=== PATIENT | male | born 1995 | race African-American/Black ===

== ENCOUNTER 2016-08-31 17:35 | Emergency (ER) | payer SELFPAY ==
--- NOTE | 2016-08-31 18:09 | ED CLINICAL REPORT ---
Clinical Report - Physicians/Mid Levels [facility] [address] [place] [address] 08/31/2016 17:37 Patient: BALWINDER DELACRUZ III Time Seen: 17:44; initial patient contact. Arrived- By private vehicle. Historian- patient. HISTORY OF PRESENT ILLNESS Chief Complaint: EYE REDNESS and IRRITATION. This started just prior to arrival and involves the right eye. pt was putting in his contacts and didn't realize he had put a cleanser in his contact lense case, not daily solution...and the second it hit his eye, it became irritated and red...no other trauma,no foreign body, etcc he removed the contact lense and irrigated his eye with water and solution, and then came to the ER. The patient wears soft contact lenses. The patient's problem began soon after inserting the contacts. Mild right eye discomfort. Moderate right eye redness (today). Eye irritation. No eye discharge, eye matting, eye itching or eyelid swelling. Mild right-sided photophobia. REVIEW OF SYSTEMS All systems otherwise negative, except as recorded above. PAST HISTORY See nurses notes. Tetanus immunization status is up-to-date. Problems: Dislocation of Finger. Fractured Phalanx (Finger). Left wrist fx. Sprain. Tetanus Status. Immunizations. Medications: None. Allergies: None. SOCIAL HISTORY No alcohol use or drug use. ADDITIONAL NOTES The nursing notes have been reviewed with agreement regarding the chief complaint, HPI, ROS, PMH and patient medications and allergies. PHYSICAL EXAM Vital Signs: 08/31/2016 17:46 BP: 134/77. HR: 79. RR: 16. O2 saturation: 100%. Temp: 97.5 F. Pain level now: 710. Have been reviewed. Appearance: Alert. Oriented X3. No acute distress. Rt Eye: Mild conjunctival edema. Moderately injected conjunctiva. No injury to the periorbital area, conjunctiva or sclera, eyelid edema or subconjunctival hemorrhage. No conjunctival foreign body. No exudate present. Eyes: Visual acuity noted- see nurse's notes. Eyelids appear normal to inspection. Periorbital areas appear normal to inspection. Lt Eye: Left eye exam normal. No injury to the periorbital area, conjunctiva or sclera or eyelid edema. No conjunctival edema or foreign body or subconjunctival hemorrhage. Conjunctiva not injected. No exudate present. CLINICAL IMPRESSION Acute chemical conjunctivitis of the right eye (due to contact lens matcher). INSTRUCTIONS No dietary restrictions. Do not smoke. No alcohol. (do not wear your contact lenses until redness is gone. follow up with your regional clinical director if not improved in 3 days or if pain develops). Prescription Medications: Polytrim ophthalmic solution: instill 1 drop into the affected eye every 3 hours while awake for 5 days, until symptoms resolve. Dispense ten (10) mL. No refill. Substitution is permissible. Follow-up: Follow up with an outreach director. Reason for referral: right eye redness if not improved. Understanding of the discharge instructions verbalized by patient. (Electronically signed by Brianne Han PA-C 08/31/2016 20:19)
--- NOTE | 2016-08-31 18:09 | ED NURSING NOTES ---
Clinical Report - Nurses [facility] [address] [place] [address] 08/31/2016 17:37 Patient: BALWINDER DELACRUZ III TRIAGE Triage time 17:46 Aug 31 2016. Acuity: LEVEL 4. Chief Complaint: BURNING TO RIGHT EYE. (used peroxide contact solution in regular contact case). Alert. No acute distress. --17:49 Nila Walters R.N. 17:46 08/31/16. BP: 134/77. HR: 79. RR: 16. O2 saturation: 100%. Temp: 97.5 F. Pain level now: 11/17. --17:49 Nila Walters R.N. Weight: 117.9 kg stated. Height/Length: 72 inches Per Patient. BMI: 35.3. Growth Chart Percentile: Weight: 99.5%. Height/Length: 80.1%. --17:48 Nila Walters R.N. Medications None. --17:47 Nila Walters R.N. Allergies None. --17:47 Nila Walters R.N. History This started today. He did not sustain an injury. He has had eye discomfort. Treatment TRIPOLER: Irrigation. PAST MEDICAL HX: Immunizations: up-to-date. SOCIAL HX: Never smoker. No alcohol use or drug use. No infectious disease exposure. SELF HARM ASSESSMENT: A self harm assessment was performed. The patient answered "no" to the question "Do you have thoughts of harming or killing yourself?". FALL RISK ASSESSMENT: Fall risk assessment completed. No fall risk identified. NUTRITIONAL RISK ASSESSMENT: The nutritional risk assessment revealed no deficiencies. FUNCTIONAL ASSESSMENT: Functional assessment: no impairments noted. LEARNING NEEDS ASSESSMENT: The learning needs assessment revealed no barriers. ABUSE ASSESSMENT: Abuse assessment: The patient was asked "Do you feel safe in your home?". SKIN INTEGRITY ASSESSMENT: Skin integrity risk assessment completed. No skin integrity risk identified. --17:49 Nila Walters R.N. PROBLEMS: Dislocation of Finger. Fractured Phalanx (Finger). Sprain. Tetanus Status. Immunizations. --17:48 Nila Walters R.N. Interventions ID band on patient. --17:49 Nila Walters R.N. PHYSICAL ASSESSMENT GENERAL / NEURO / PSYCH: Alert. Appears in pain. HEENT: Pupils equal, round and reactive to light. RESPIRATORY: Respirations not labored. SKIN: Skin is warm and dry. --17:50 Nila Walters R.N. NURSING PROGRESS NOTES Patient identifiers checked. Call light placed in reach. Side rails up x 1. Bed placed in lowest position. Brakes of bed on. --17:50 Nila Walters R.N. DISPOSITION / DISCHARGE 18:15 08/31/16. Departure time: 1813. Condition at departure: improved and stable. No learning barriers present. Discharge instructions provided and reviewed with the patient. Reviewed medication(s) side effects, precautions, dosing and course information. Prescription(s) given to the patient. Patient verbalized understanding. Written instructions provided in Greek. The patient was discharged by the physician. He was discharged home and accompanied by director camp. He left the Emergency Department ambulatory and via private vehicle. Transformation Lead driving. --18:15 Sarbjit Denise R.N. Locked/Released at 08/31/2016 23:11 by Nila Walters R.N.
--- NOTE | 2016-08-31 18:09 | ED NURSING NOTES ---
Clinical Report - Nurses [facility] [address] [place] [address] 08/31/2016 17:37 Patient: BALWINDER DELACRUZ III TRIAGE Triage time 17:46 Aug 31 2016. Acuity: LEVEL 4. Chief Complaint: BURNING TO RIGHT EYE. (used peroxide contact solution in regular contact case). Alert. No acute distress. --17:49 Nila Walters R.N. 17:46 08/31/16. BP: 134/77. HR: 79. RR: 16. O2 saturation: 100%. Temp: 97.5 F. Pain level now: 11/17. --17:49 Nila Walters R.N. Weight: 117.9 kg stated. Height/Length: 72 inches Per Patient. BMI: 35.3. Growth Chart Percentile: Weight: 99.5%. Height/Length: 80.1%. --17:48 Nila Walters R.N. Medications None. --17:47 Nila Walters R.N. Allergies None. --17:47 Nila Walters R.N. History This started today. He did not sustain an injury. He has had eye discomfort. Treatment SEWING MACHINE OPERATOR: Irrigation. PAST MEDICAL HX: Immunizations: up-to-date. SOCIAL HX: Never smoker. No alcohol use or drug use. No infectious disease exposure. SELF HARM ASSESSMENT: A self harm assessment was performed. The patient answered "no" to the question "Do you have thoughts of harming or killing yourself?". FALL RISK ASSESSMENT: Fall risk assessment completed. No fall risk identified. NUTRITIONAL RISK ASSESSMENT: The nutritional risk assessment revealed no deficiencies. FUNCTIONAL ASSESSMENT: Functional assessment: no impairments noted. LEARNING NEEDS ASSESSMENT: The learning needs assessment revealed no barriers. ABUSE ASSESSMENT: Abuse assessment: The patient was asked "Do you feel safe in your home?". SKIN INTEGRITY ASSESSMENT: Skin integrity risk assessment completed. No skin integrity risk identified. --17:49 Nila Walters R.N. PROBLEMS: Dislocation of Finger. Fractured Phalanx (Finger). Sprain. Tetanus Status. Immunizations. --17:48 Nila Walters R.N. Interventions ID band on patient. --17:49 Nila Walters R.N. PHYSICAL ASSESSMENT GENERAL / NEURO / PSYCH: Alert. Appears in pain. HEENT: Pupils equal, round and reactive to light. RESPIRATORY: Respirations not labored. SKIN: Skin is warm and dry. --17:50 Nila Walters R.N. NURSING PROGRESS NOTES Patient identifiers checked. Call light placed in reach. Side rails up x 1. Bed placed in lowest position. Brakes of bed on. --17:50 Nila Walters R.N. DISPOSITION / DISCHARGE 18:15 08/31/16. Departure time: 1813. Condition at departure: improved and stable. No learning barriers present. Discharge instructions provided and reviewed with the patient. Reviewed medication(s) side effects, precautions, dosing and course information. Prescription(s) given to the patient. Patient verbalized understanding. Written instructions provided in Romanian. The patient was discharged by the physician. He was discharged home and accompanied by supervisor assembly and packing. He left the Emergency Department ambulatory and via private vehicle. Probation And Patrol Agent driving. --18:15 Sarbjit Denise R.N. Locked/Released at 08/31/2016 23:11 by Nila Walters R.N.
--- NOTE | 2016-08-31 18:09 | ED CLINICAL REPORT ---
Clinical Report - Physicians/Mid Levels [facility] [address] [place] [address] 08/31/2016 17:37 Patient: BALWINDER DELACRUZ III Time Seen: 17:44; initial patient contact. Arrived- By private vehicle. Historian- patient. HISTORY OF PRESENT ILLNESS Chief Complaint: EYE REDNESS and IRRITATION. This started just prior to arrival and involves the right eye. pt was putting in his contacts and didn't realize he had put a cleanser in his contact lense case, not daily solution...and the second it hit his eye, it became irritated and red...no other trauma,no foreign body, etcc he removed the contact lense and irrigated his eye with water and solution, and then came to the ER. The patient wears soft contact lenses. The patient's problem began soon after inserting the contacts. Mild right eye discomfort. Moderate right eye redness (today). Eye irritation. No eye discharge, eye matting, eye itching or eyelid swelling. Mild right-sided photophobia. REVIEW OF SYSTEMS All systems otherwise negative, except as recorded above. PAST HISTORY See nurses notes. Tetanus immunization status is up-to-date. Problems: Dislocation of Finger. Fractured Phalanx (Finger). Left wrist fx. Sprain. Tetanus Status. Immunizations. Medications: None. Allergies: None. SOCIAL HISTORY No alcohol use or drug use. ADDITIONAL NOTES The nursing notes have been reviewed with agreement regarding the chief complaint, HPI, ROS, PMH and patient medications and allergies. PHYSICAL EXAM Vital Signs: 08/31/2016 17:46 BP: 134/77. HR: 79. RR: 16. O2 saturation: 100%. Temp: 97.5 F. Pain level now: 710. Have been reviewed. Appearance: Alert. Oriented X3. No acute distress. Rt Eye: Mild conjunctival edema. Moderately injected conjunctiva. No injury to the periorbital area, conjunctiva or sclera, eyelid edema or subconjunctival hemorrhage. No conjunctival foreign body. No exudate present. Eyes: Visual acuity noted- see nurse's notes. Eyelids appear normal to inspection. Periorbital areas appear normal to inspection. Lt Eye: Left eye exam normal. No injury to the periorbital area, conjunctiva or sclera or eyelid edema. No conjunctival edema or foreign body or subconjunctival hemorrhage. Conjunctiva not injected. No exudate present. CLINICAL IMPRESSION Acute chemical conjunctivitis of the right eye (due to contact precision lens technician). INSTRUCTIONS No dietary restrictions. Do not smoke. No alcohol. (do not wear your contact lenses until redness is gone. follow up with your still runner if not improved in 3 days or if pain develops). Prescription Medications: Polytrim ophthalmic solution: instill 1 drop into the affected eye every 3 hours while awake for 5 days, until symptoms resolve. Dispense ten (10) mL. No refill. Substitution is permissible. Follow-up: Follow up with an store mgr. Reason for referral: right eye redness if not improved. Understanding of the discharge instructions verbalized by patient. (Electronically signed by Brianne Han PA-C 08/31/2016 20:19)
--- NOTE | 2016-08-31 23:11 | ED MED RECONCILIATION SUMMARY ---
Patient: BALWINDER DELACRUZ III Medication Reconciliation Report [facility] VisitID: [id number] [address] [place] [address] 20y, M Registration Date/Time: 08/31/2016 Weight: 117.9 kg Height/Length: 72 in. BMI: 35.3 ALLERGIES: None The patient's Home Medications are listed below: NONE. The source(s) of the original Home Medication information: Not obtained. The following Medications were given to the patient in the Emergency Department: None. The following Medications were prescribed to the patient: Polytrim ophthalmic solution: instill 1 drop into the affected eye every 3 hours while awake for 5 days, until symptoms resolve. Dispense ten (10) mL. No refill. Substitution is permissible. -- Brianne Han PA-C
--- NOTE | 2016-08-31 23:11 | ED DISCHARGE INSTRUCTIONS ---
Patient: BALWINDER DELACRUZ III General Instructions [facility] VisitID: [id number] [place] [address] 20y, M Registration Date/Time: 08/31/2016 Acute chemical conjunctivitis of the right eye (due to contact basin cleaner). INSTRUCTIONS No dietary restrictions. Do not smoke. No alcohol. (do not wear your contact lenses until redness is gone. follow up with your graduate recruiter if not improved in 3 days or if pain develops). Prescription Medications: Polytrim ophthalmic solution: instill 1 drop into the affected eye every 3 hours while awake for 5 days, until symptoms resolve. Dispense ten (10) mL. No refill. Substitution is permissible. Follow-up: Follow up with an band edger. Reason for referral: right eye redness if not improved. Understanding of the discharge instructions verbalized by patient. (Electronically signed by Brianne Han PA-C 08/31/2016 20:19)
--- NOTE | 2016-08-31 23:11 | ED DISCHARGE INSTRUCTIONS ---
Patient: BALWINDER DELACRUZ III General Instructions [facility] VisitID: [id number] [place] [address] 20y, M Registration Date/Time: 08/31/2016 Acute chemical conjunctivitis of the right eye (due to contact inspector multifocal lens). INSTRUCTIONS No dietary restrictions. Do not smoke. No alcohol. (do not wear your contact lenses until redness is gone. follow up with your copping machine operator if not improved in 3 days or if pain develops). Prescription Medications: Polytrim ophthalmic solution: instill 1 drop into the affected eye every 3 hours while awake for 5 days, until symptoms resolve. Dispense ten (10) mL. No refill. Substitution is permissible. Follow-up: Follow up with an manager diabetes. Reason for referral: right eye redness if not improved. Understanding of the discharge instructions verbalized by patient. (Electronically signed by Brianne Han PA-C 08/31/2016 20:19)
--- NOTE | 2016-08-31 23:11 | ED MAR SUMMARY ---
..... Medication Administration Record [facility] [address] [place], [place] [id number] Patient: BALWINDER DELACRUZ Visit ID: [id number] 20y, M Weight: 117.9 kg Height/Length: 72 in BMI: 35.3 ALLERGIES: None
--- NOTE | 2016-08-31 23:11 | ED MED RECONCILIATION SUMMARY ---
Patient: BALWINDER DELACRUZ III Medication Reconciliation Report [facility] VisitID: [id number] [address] [place] [address] 20y, M Registration Date/Time: 08/31/2016 Weight: 117.9 kg Height/Length: 72 in. BMI: 35.3 ALLERGIES: None The patient's Home Medications are listed below: NONE. The source(s) of the original Home Medication information: Not obtained. The following Medications were given to the patient in the Emergency Department: None. The following Medications were prescribed to the patient: Polytrim ophthalmic solution: instill 1 drop into the affected eye every 3 hours while awake for 5 days, until symptoms resolve. Dispense ten (10) mL. No refill. Substitution is permissible. -- Brianne Han PA-C
--- NOTE | 2016-08-31 23:11 | ED MAR SUMMARY ---
..... Medication Administration Record [facility] [address] [place], [place] [id number] Patient: BALWINDER DELACRUZ Visit ID: [id number] 20y, M Weight: 117.9 kg Height/Length: 72 in BMI: 35.3 ALLERGIES: None
== END 2016-08-31 18:58 | disposition home or self-care (01) ==
LOC: ED SRH 17:35
DX: H10.211 Acute toxic conjunctivitis, right eye (principal)